=== PATIENT | male | born 2000 | race Caucasian/White ===

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

== ENCOUNTER 2018-01-07 19:59 | Emergency (ER) | payer OTHER ==
[2018-01-07] MEDS ORDERED: HYDROcodone/ACETAMIN 5-325 MG* 1 TAB PO ONE (20:45)
[2018-01-07 20:50] VITALS: BP 107/67
--- NOTE | 2018-01-13 08:41 | UC ---
Upper Extremity HPI - HPI Summary HPI Summary: Patient to urgent care [facility] with father. Patient sustained a fracture of his right wrist yesterday was seen in primary care office hadn't wrist splinted. Patient was unable to pear picker pain medications. Patient is here for pain medication until he sees the orthopedic doctor on Tuesday - History of Current Complaint Chief Complaint: UCUpperExtremity Stated Complaint: RIGHT WRIST FRACTURE Time Seen by Provider: 01/07/18 21:00 Hx Obtained From: Patient ?: No Onset/Duration: Sudden Onset Severity Initially: Moderate Severity Currently: Moderate Pain Intensity: 7 Pain Scale Used: 0-10 Numeric Location Of Pain: Is Discrete @ - Right wrist Character: Aching, Throbbing Alleviating Factor(s): Elevation Associated Signs And Symptoms: Positive: Negative Related History: Dominant Hand Right - Allergies/Home Medications Allergies/Adverse Reactions: Allergies Allergy/AdvReac Type Severity Reaction Status Date / Time No Known Allergies Allergy Verified 11/30/17 15:48 Home Medications: Home Medications NK [No Home Medications Reported] 01/07/18 [History Confirmed 01/07/18] PMH/Surg Hx/FS Hx/Imm Hx Previously Healthy: Yes - Surgical History Surgical History: None - Family History Known Family History: Negative: Cardiac Disease, Hypertension, Diabetes - Social History Occupation: Student Lives: Dormitory/Roommates Alcohol Use: Weekly Substance Use Type: None Smoking Status (MU): Never Smoked Tobacco Review of Systems Constitutional: Negative Skin: Negative Eyes: Negative ENT: Negative Respiratory: Negative Cardiovascular: Negative Gastrointestinal: Negative Genitourinary: Negative Motor: Negative Neurovascular: Negative Musculoskeletal: Arthralgia Neurological: Negative Psychological: Negative Is Patient Immunocompromised?: No All Other Systems Reviewed And Are Negative: Yes Physical Exam Triage Information Reviewed: Yes Appearance: Well-Appearing, No Pain Distress, Well-Nourished Vital Signs: Initial Vital Signs Temp 99 F 01/07/18 20:40 Pulse 61 01/07/18 20:40 Resp 16 01/07/18 20:40 BP 107/67 01/07/18 20:40 Pulse Ox 100 01/07/18 20:40 Vital Signs Reviewed: Yes Eye Exam: Normal Eyes: Positive: Conjunctiva Clear ENT Exam: Normal ENT: Positive: Normal ENT inspection, Hearing grossly normal. Negative: Nasal congestion, Nasal drainage, Trismus, Muffled voice, Hoarse voice Dental Exam: Normal Neck exam: Normal Neck: Positive: Supple, Nontender Respiratory Exam: Normal Respiratory: Positive: No respiratory distress, No accessory muscle use Cardiovascular Exam: Normal Cardiovascular: Positive: Pulses Normal, Brisk Capillary Refill Musculoskeletal Exam: Normal Musculoskeletal: Positive: Strength Intact, ROM Intact, No Edema, Other: - Neuro motor and circulation intact distally in right hand Neurological Exam: Normal Neurological: Positive: Alert, Muscle Tone Normal Psychological Exam: Normal Psychological: Positive: Normal Response To Family Skin Exam: Normal Upper Extremity Course/Dx - Course Course Of Treatment: Rest ice elevation and sling provided pain medication given plan to follow up on Tuesday with orthopedic. Return to urgent care or emergency department for acute issues - Differential Dx/Diagnosis Provider Diagnoses: Acute pain right wrist fracture Discharge - Sign-Out/Discharge Documenting (check all that apply): Discharge - Discharge Plan Condition: Stable Disposition: HOME Patient Education Materials: Hydrocodone/Acetaminophen (By mouth), Ibuprofen ( By mouth), Hand Fracture (ED), R.I.C.E. Treatment (ED) Referrals: Non Staff,Doctor [Primary Care Provider] - Additional Instructions: Follow with hand surgeon on Tuesday as planned - Billing Disposition and Condition Condition: STABLE Disposition: HOME
== END 2018-01-07 21:02 | disposition home or self-care (01) ==
LOC: UCCORT 19:59
DX: M25.531 Pain in right wrist (principal); S62.101D Fracture of unspecified carpal bone, right wrist, subsequent encounter for fracture with routine healing; X58.XXXD Exposure to other specified factors, subsequent encounter
CPT/HCPCS: 99213; G0463